=== PATIENT | male | born 1965 | race Caucasian/White ===

== ENCOUNTER 2018-05-07 07:30 | Emergency (ER) | payer OTHER ==
[~2018-05-07] VITALS: Ht 167.6 cm; Wt 80.1 kg
[2018-05-07 07:36] VITALS: BP 149/92
[2018-05-07] MEDS ORDERED: LIDOCAINE HCL 1% 20ML VIAL (Pyxis) INJ INFIL ONE (09:30)
[2018-05-07] MEDS ORDERED: LIDOCAINE HCL/PF 1% 10 MG/ML 5ML VIAL IJ NR (09:45)
[2018-05-07] MEDS ORDERED: BACITRACIN ZINC OINT UDPKT TOP ONE (11:15)
== END 2018-05-07 11:43 | disposition home or self-care (01) ==
LOC: ER 07:30
DX: L02.01 Cutaneous abscess of face (principal); E11.9 Type 2 diabetes mellitus without complications; I10 Essential (primary) hypertension
CPT/HCPCS: 10060; 99283; J3490; Z7610